=== PATIENT | male | born 1995 | race American Indian/Alaskan Native ===

== ENCOUNTER 2017-04-16 21:01 | Emergency (ER) | payer SELFPAY ==
[2017-04-16 21:35] LABS: Basophils % (Auto) 0.8 % (0.0-1.8); Eosinophils % (Auto) 5.8 % (0.0-4.3); Hematocrit 50.6 % (35.5-45.6); Mean Corpuscular HGB Conc 34 % (32-34); Mean Corpuscular Hemoglobin 32 pg (28-32); Mean Corpuscular Volume 94 fl (84-94); Platelet Count 192 K/mm3 (140-440); Red Blood Count 5.39 M/mm3 (3.65-5.03); Red Cell Distribution Width 12.6 % (13.2-15.2); White Blood Count 4.7 K/mm3 (4.5-11.0)
[2017-04-16 21:55] LABS: Anion Gap 17 mmol/L; BUN/Creatinine Ratio 11.11; Blood Urea Nitrogen 10 mg/dL (9-20); Calcium 9.5 mg/dL (8.4-10.2); Carbon Dioxide 30 mmol/L (22-30); Chloride 98.1 mmol/L (98-107); Glucose 97 mg/dL (75-100); Potassium 3.7 mmol/L (3.6-5.0); Sodium 141 mmol/L (137-145)
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
[2017-04-17 02:43] VITALS: BP 121/81
--- NOTE | 2017-04-17 09:34 | XRay Report ---
Chest 2 views: History: Chest pain/cough. Findings: Normal cardiomediastinal silhouette. Trachea is midline. No consolidation, pneumothorax or pleural effusion. Impression: No acute cardiopulmonary findings.
== END 2017-04-17 02:40 | disposition home or self-care (01) ==
LOC: ED 21:01
DX: J20.9 Acute bronchitis, unspecified (principal); F17.200 Nicotine dependence, unspecified, uncomplicated
CPT/HCPCS: 36415; 71020; 80048; 84484; 85025; 93005; 93010

== ENCOUNTER 2017-04-19 15:30 | Emergency (ER) | payer SELFPAY ==
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
[2017-04-19 22:52] LABS: Basophils % (Auto) 0.8 % (0.0-1.8); Eosinophils % (Auto) 3.5 % (0.0-4.3); Hematocrit 49.1 % (35.5-45.6); Hemoglobin 16.6 gm/dl (11.8-15.2); Mean Corpuscular HGB Conc 34 % (32-34); Mean Corpuscular Hemoglobin 32 pg (28-32); Mean Corpuscular Volume 94 fl (84-94); Platelet Count 187 K/mm3 (140-440); Red Blood Count 5.24 M/mm3 (3.65-5.03); Red Cell Distribution Width 12.5 % (13.2-15.2); White Blood Count 4.4 K/mm3 (4.5-11.0)
--- NOTE | 2017-04-19 22:54 | XRay Report ---
FINAL REPORT EXAM: XR CHEST ROUTINE 2V HISTORY: chest pain TECHNIQUE: Two view chest PA and lateral PRIORS: None. FINDINGS: Cardiac and mediastinal contours are unremarkable. No focal pulmonary infiltrate is identified. No pleural fluid collection seen. Pulmonary vasculature is unremarkable. IMPRESSION: Negative two-view chest
[2017-04-19 23:10] LABS: Creatine Kinase MB 1.1 ng/mL (0.0-4.0)
[2017-04-19 23:11] LABS: Anion Gap 19 mmol/L; BUN/Creatinine Ratio 14.44; Blood Urea Nitrogen 13 mg/dL (9-20); Calcium 9.3 mg/dL (8.4-10.2); Carbon Dioxide 27 mmol/L (22-30); Chloride 97.9 mmol/L (98-107); Creatine Kinase 139 units/L (55-170); Glucose 70 mg/dL (75-100); Sodium 139 mmol/L (137-145)
[2017-04-19 23:12] LABS: Potassium 4.5 mmol/L (3.6-5.0)
[2017-04-20 00:39] VITALS: BP 123/79
== END 2017-04-19 23:15 | disposition home or self-care (01) ==
LOC: ED 15:30
DX: J40 Bronchitis, not specified as acute or chronic (principal); F17.200 Nicotine dependence, unspecified, uncomplicated
CPT/HCPCS: 36415; 71020; 80048; 82550; 82553; 84484; 85025; 93005; 93010; 99284

== ENCOUNTER 2017-08-29 13:11 | Emergency (ER) | payer BC ==
[2017-08-29 15:04] VITALS: BP 128/80
== END 2017-08-30 04:23 | disposition left against medical advice (07) ==
LOC: ED 13:11
DX: R51 Headache (principal); Z53.21 Procedure and treatment not carried out due to patient leaving prior to being seen by health care provider

== ENCOUNTER 2017-10-22 20:51 | Emergency (ER) | payer BC ==
[2017-10-22 20:56] VITALS: BP 136/74
[2017-10-22] MEDS ORDERED: AUGMENTIN 875 MG PO ONE (22:34)
[2017-10-22] MEDS ORDERED: MOTRIN PO ONE (22:34)
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
== END 2017-10-22 23:00 | disposition home or self-care (01) ==
LOC: ED 20:51
DX: S01.452A Open bite of left cheek and temporomandibular area, initial encounter (principal); F17.200 Nicotine dependence, unspecified, uncomplicated; W50.3XXA Accidental bite by another person, initial encounter; Y92.89 Other specified places as the place of occurrence of the external cause; Y93.89 Activity, other specified; Y99.8 Other external cause status
CPT/HCPCS: 99282

== ENCOUNTER 2017-11-12 00:21 | Emergency (ER) | payer BC ==
[2017-11-12 01:29] VITALS: BP 124/84
== END 2017-11-12 02:20 | disposition left against medical advice (07) ==
LOC: ED 00:21
DX: Z53.21 Procedure and treatment not carried out due to patient leaving prior to being seen by health care provider (principal)

== ENCOUNTER 2021-04-16 16:05 | Emergency (ER) | payer BC ==
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
== END 2021-04-16 18:20 | disposition left against medical advice (07) ==
LOC: ED 16:05